=== PATIENT | male | born 1990 | race Caucasian/White ===

== ENCOUNTER → 2018-12-27 | Outpatient (REF) | payer BC ==
[2018-12-27 18:26] LABS: AMYLASE 40 U/L (25-115); LIPASE 144 U/L (73-393)
[2018-12-27 18:35] LABS: H PYLORI QUALITATIVE IgG NEGATIVE (NEGATIVE)
== END ==
LOC: M LAB REF 17:29
PROVIDERS: ATTEND Nurse Practitioner Family
DX: R10.9 Unspecified abdominal pain (principal)

== ENCOUNTER 2019-03-26 09:58 | Day surgery (SDC) | payer BC ==
[~2019-03-26] VITALS: Ht 170.2 cm; Wt 59.4 kg
[~2019-03-26 09:58] MED LIST: HYOS125TA PO; NS 1,000 ML IV ONE; OMEP-221 PO; PROBCAP14 PO
[2019-03-26] MEDS ORDERED: PROPOFOL 200 MG/20 ML VIAL As Ordered ONE (10:25)
[2019-03-26] MEDS ORDERED: LIDOCAINE 2% INJ 100 MG/5 ML SDV (FOR ANES.) As Ordered ONE (10:35)
[2019-03-26] MEDS ORDERED: fentaNYL 100 MCG/2 ML INJECTION (J3010) As Ordered ONE (11:04)
--- NOTE | 2019-03-26 11:54 | ROOR ---
Patient Name: Jacky Paulino Procedure Date: 03/26/2019 11:30 AM Date of : 1990 Age: 29 Room: [facility] Gender: Male Note Status: Finalized Procedure: Upper Endoscopy + Biopsies Indications: Dyspepsia, Heartburn Providers: Ted Toribio MD Referring MD: LIO AVILES NP Requesting Provider: Medicines: Monitored Anesthesia Care Complications: No immediate complications. Procedure: Pre-Anesthesia Assessment: - The heart rate, respiratory rate, oxygen saturations, blood pressure, adequacy of pulmonary ventilation, and response to care were monitored throughout the procedure. The Endoscope was introduced through the mouth, and advanced to the second part of duodenum. The upper GI endoscopy was accomplished without difficulty. The patient tolerated the procedure well. Findings: The Z-line was regular and was found 40 cm from the incisors. No other significant abnormalities were identified in a careful examination of the stomach. Biopsies were taken with a cold forceps in the gastric antrum for Helicobacter pylori testing. The exam of the duodenum was otherwise normal. Impression: - Z-line regular, 40 cm from the incisors. - Biopsies were taken with a cold forceps for Helicobacter pylori testing. - The examination was otherwise normal. Recommendation: - Patient has a contact number available for emergencies. The signs and symptoms of potential delayed complications were discussed with the patient. Return to normal activities tomorrow. Written discharge instructions were provided to the patient. - High fiber diet. - Discharge patient to home. - Follow an antireflux regimen. - Continue present medications. - Await pathology results. - Telephone GI clinic for pathology results in 1 week. - Return to referring physician. - The findings and recommendations were discussed with the patient's family. Ted Toribio MD Ted Toribio MD 03/26/2019 11:54:14 AM Electronically signed by Ted Toribio MD Number of Addenda: 0 Note Initiated On: 03/26/2019 11:30 AM Estimated Blood Loss: Estimated blood loss: none.
--- NOTE | 2019-03-26 12:08 | ROOR ---
Patient Name: Jacky Paulino Procedure Date: 03/26/2019 11:31 AM Date of : 1990 Age: 29 Room: [facility] Gender: Male Note Status: Finalized Procedure: Total Colonoscopy to Cecum + ileoscopy Indications: Lower abdominal pain Providers: Ted Toribio MD Referring MD: LIO AVILES NP Requesting Provider: Medicines: Monitored Anesthesia Care Complications: No immediate complications. Procedure: Pre-Anesthesia Assessment: - The heart rate, respiratory rate, oxygen saturations, blood pressure, adequacy of pulmonary ventilation, and response to care were monitored throughout the procedure. The Colonoscope was introduced through the anus and advanced to the cecum, identified by appendiceal orifice and ileocecal valve. The colonoscopy was performed without difficulty. The patient tolerated the procedure well. The quality of the bowel preparation was excellent. Findings: The perianal and digital rectal examinations were normal. No other significant abnormalities were identified in a careful examination of the remainder of the colon. The exam was otherwise without abnormality on direct and retroflexion views. The terminal ileum appeared normal. The exam was otherwise without abnormality. Impression: - The examination was otherwise normal on direct and retroflexion views. - The examined portion of the ileum was normal. - The examination was otherwise normal. - No specimens collected. - The exam was otherwise normal to the cecum. Recommendation: - Patient has a contact number available for emergencies. The signs and symptoms of potential delayed complications were discussed with the patient. Return to normal activities tomorrow. Written discharge instructions were provided to the patient. - High fiber diet. - Discharge patient to home. - Continue present medications. - Repeat colonoscopy at age 50 for screening purposes. - The findings and recommendations were discussed with the patient's family. Ted Toribio MD Ted Toribio MD 03/26/2019 12:07:37 PM Electronically signed by Ted Toribio MD Number of Addenda: 0 Note Initiated On: 03/26/2019 11:31 AM Estimated Blood Loss: Estimated blood loss: none.
[2019-03-26 12:36] VITALS: BP 108/63
== END 2019-03-26 12:38 | disposition home or self-care (01) ==
LOC: M OPP 09:58
PROVIDERS: ATTEND Internal Medicine Gastroenterology
DX: R10.30 Lower abdominal pain, unspecified (principal); R10.13 Epigastric pain; R12 Heartburn
CPT/HCPCS: 43239; 45378; 88305; J3010

== ENCOUNTER 2019-06-06 19:04 | Emergency (ER) | payer BC, SELFPAY ==
[~2019-06-06] VITALS: Ht 167.6 cm; Wt 61.4 kg
[~2019-06-06 19:04] MED LIST changes: -NS 1,000 ML IV ONE
[2019-06-06] MEDS ORDERED: NS 1,000 ML IV ONE (20:00)
[2019-06-06 20:18] LABS: BASO % 0.4 % (0.0-1.0); EOS # 0.2 10^3/uL (0.0-0.50); EOS % 2.9 % (0.0-3.0); HEMATOCRIT 45.1 % (42.0-52.0); HEMOGLOBIN 15.3 g/dl (13.5-17.5); LYMPH # 2.4 10^3/uL (1.5-6.5); LYMPH % 33.5 % (24.0-44.0); MEAN CORPUSCULAR HEMOGLOBIN 29.2 pg (27.0-33.0); MEAN CORPUSCULAR HGB CONC 33.9 g/dl (32.0-36.5); MEAN CORPUSCULAR VOLUME 86.1 fl (80.0-96.0); MONO # 0.5 10^3/uL (0.0-0.8); MONO % 6.9 % (0.0-5.0); NEUTROPHILS # 4.1 10^3/uL (1.8-7.7); PLATELET COUNT, AUTOMATED 342 10^3/uL (150-450); RED BLOOD COUNT 5.24 10^6/uL (4.30-6.10); WHITE BLOOD COUNT 7.2 10^3/uL (4.0-10.0)
[2019-06-06 20:39] LABS: BLOOD UREA NITROGEN 10 MG/DL (7-18); C REACTIVE PROTEIN QUANTITATIV < 0.30 MG/DL (0.00-0.30); CALCIUM LEVEL 9.8 MG/DL (8.5-10.1); CARBON DIOXIDE LEVEL 30 MEQ/L (21-32); CHLORIDE LEVEL 108 MEQ/L (98-107); CREATININE FOR GFR 1.06 MG/DL (0.70-1.30); GLOMERULAR FILTRATION RATE > 60.0 (>60); GLUCOSE, FASTING 88 MG/DL (70-100); SODIUM LEVEL 141 MEQ/L (136-145)
[2019-06-06 20:40] LABS: ERYTHROCYTE SEDIMENTATION RATE 2 mm/hr (0-15)
[2019-06-06] MEDS ORDERED: METOCLOPRAMIDE 10 MG TAB PO ONE (20:45)
[2019-06-06] MEDS ORDERED: REGL10TA6 PO (21:38)
[2019-06-06 21:43] VITALS: BP 139/83
== END 2019-06-06 21:45 | disposition home or self-care (01) ==
LOC: M ED 19:04
DX: I88.9 Nonspecific lymphadenitis, unspecified (principal); G89.29 Other chronic pain; R10.30 Lower abdominal pain, unspecified; R11.2 Nausea with vomiting, unspecified; J45.909 Unspecified asthma, uncomplicated; K21.9 Gastro-esophageal reflux disease without esophagitis; Z79.899 Other long term (current) drug therapy; Z91.030 Bee allergy status

== ENCOUNTER 2019-06-11 19:15 | Emergency (ER) | payer BC, SELFPAY ==
[~2019-06-11] VITALS: Ht 167.6 cm; Wt 61.4 kg
[~2019-06-11 19:15] MED LIST changes: +REGL10TA6 PO
[2019-06-11] MEDS ORDERED: EXCETAB44 PO (19:22)
[2019-06-11 21:23] LABS: BASO % 0.2 % (0.0-1.0); EOS # 0.1 10^3/uL (0.0-0.50); EOS % 1.5 % (0.0-3.0); HEMATOCRIT 42.6 % (42.0-52.0); HEMOGLOBIN 14.8 g/dl (13.5-17.5); LYMPH # 2.5 10^3/uL (1.5-6.5); LYMPH % 28.2 % (24.0-44.0); MEAN CORPUSCULAR HEMOGLOBIN 29.6 pg (27.0-33.0); MEAN CORPUSCULAR HGB CONC 34.7 g/dl (32.0-36.5); MEAN CORPUSCULAR VOLUME 85.2 fl (80.0-96.0); MONO # 0.5 10^3/uL (0.0-0.8); MONO % 6.1 % (0.0-5.0); NEUTROPHILS # 5.5 10^3/uL (1.8-7.7); NEUTROPHILS % 63.5 % (36.0-66.0); PLATELET COUNT, AUTOMATED 308 10^3/uL (150-450); WHITE BLOOD COUNT 8.7 10^3/uL (4.0-10.0)
[2019-06-11 21:46] LABS: BLOOD UREA NITROGEN 11 MG/DL (7-18); CALCIUM LEVEL 9.6 MG/DL (8.5-10.1); CARBON DIOXIDE LEVEL 32 MEQ/L (21-32); CHLORIDE LEVEL 107 MEQ/L (98-107); CK-MB VALUE MASS < 1.0 NG/ML (<3.6); CPK CREATINE PHOSPHOKINASE 207 U/L (39-308); CREATININE FOR GFR 1.04 MG/DL (0.70-1.30); GLOMERULAR FILTRATION RATE > 60.0 (>60); GLUCOSE, FASTING 91 MG/DL (70-100); MB/CK RELATIVE INDEX 0.48 (< OR =4); POTASSIUM SERUM 3.9 MEQ/L (3.5-5.1); SODIUM LEVEL 142 MEQ/L (136-145); TROPONIN I < 0.02 NG/ML (< 0.10)
[2019-06-11] MEDS ORDERED: KETOROLAC 30 MG/ML VIAL (J1885) IV ONE (23:00)
[2019-06-11] MEDS ORDERED: KETO10TAB PO (23:32)
[2019-06-11 23:41] VITALS: BP 130/85
[2019-06-11] MEDS ORDERED: ACETAMINOPHEN 500 MG TAB PO ONE (23:45)
--- NOTE | 2019-06-12 08:15 | REP ---
Right rib series: Five views including PA chest. History: Chest pain. Findings: PA chest radiograph is normal. There is no evidence of infiltrate or free subdiaphragmatic air. Heart is not enlarged. Pulmonary vasculature is not increased. No significant bony abnormality is seen. Four views of the right ribcage show no visible rib fracture or bony destructive lesion. Impression: Negative right rib series. Electronically Signed by Lars Adhikari MD 06/12/2019 08:07 A
--- NOTE | 2019-06-13 05:51 | ECGEPIP ---
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
== END 2019-06-11 23:42 | disposition home or self-care (01) ==
LOC: M ED 19:15
DX: M94.0 Chondrocostal junction syndrome [Tietze] (principal); K21.9 Gastro-esophageal reflux disease without esophagitis; J45.909 Unspecified asthma, uncomplicated; G89.29 Other chronic pain; R11.2 Nausea with vomiting, unspecified; Z87.891 Personal history of nicotine dependence; Z91.030 Bee allergy status; Z79.899 Other long term (current) drug therapy
CPT/HCPCS: 71101; 80048; 82550; 82553; 84484; 85025; 93005; 96374; 99284; J1885

== ENCOUNTER → 2019-07-28 | Outpatient (CLI) | payer BC ==
[~2019-07-28] MED LIST changes: +EXCETAB44 PO; +KETO10TAB PO
--- NOTE | 2019-07-28 11:21 | REP ---
Gastric emptying nuclear scintigraphy: History: Nausea vomiting. Bloating. Technique: 1.06 mCi of technetium-99m sulfur colloid was ingested in two scrambled eggs and 6 ounces of water and sequential anterior and posterior images are acquired for an 89-minute imaging observation period. Regions of interest are drawn around the stomach to plot gastric emptying. Scintigraphic findings: Expected T1/2 is 90 minutes. 15 % emptying is observed in this patient during the 89-minute imaging observation period, for a calculated T1/2 in this patient of 281 minutes. Impression: Delayed gastric emptying. Electronically Signed by Lars Adhikari MD 07/28/2019 11:13 A
== END ==
LOC: M RAD 07:41
PROVIDERS: ATTEND Internal Medicine Gastroenterology
DX: K30 Functional dyspepsia (principal)
CPT/HCPCS: 78264; A9541

== ENCOUNTER 2020-04-29 20:30 | Emergency (ER) | payer BC ==
[~2020-04-29] VITALS: Ht 172.7 cm; Wt 65.9 kg
[2020-04-29] MEDS ORDERED: EPIN0.3I11 IM (20:41)
[2020-04-29] MEDS ORDERED: TOPI25TA10 PO (20:41)
[2020-04-29] MEDS ORDERED: GI COCKTAIL 50ML BTL(HYOSCYAMINE/MAALOX/LIDOCAINE VISCOUS)(1:3:1) PO ONE (21:15)
[2020-04-29] MEDS ORDERED: ONDANSETRON 4MG/2ML VIAL IV ONE (21:15)
[2020-04-29 22:00] LABS: BASO % 0.4 % (0.0-1.0); EOS # 0.3 10^3/uL (0.0-0.5); EOS % 2.6 % (0.0-3.0); HEMATOCRIT 43.8 % (42.0-52.0); HEMOGLOBIN 15.1 g/dl (13.5-17.5); LYMPH # 3.6 10^3/uL (1.5-5.0); LYMPH % 38.3 % (24.0-44.0); MEAN CORPUSCULAR HEMOGLOBIN 28.9 pg (27.0-33.0); MEAN CORPUSCULAR HGB CONC 34.5 g/dl (32.0-36.5); MEAN CORPUSCULAR VOLUME 83.9 fl (80.0-96.0); MONO # 0.7 10^3/uL (0.0-0.8); MONO % 7.1 % (0.0-5.0); NEUTROPHILS # 4.9 10^3/uL (1.5-8.5); NEUTROPHILS % 51.4 % (36.0-66.0); PLATELET COUNT, AUTOMATED 331 10^3/uL (150-450); RED BLOOD COUNT 5.22 10^6/uL (4.30-6.10); WHITE BLOOD COUNT 9.5 10^3/uL (4.0-10.0)
[2020-04-29 22:14] LABS: INR 0.96; PROTHROMBIN TIME 12.5 SECONDS (11.8-14.0)
[2020-04-29 22:21] LABS: ALBUMIN 4.5 GM/DL (3.2-5.2); ALT/SGPT 49 U/L (12-78); BILIRUBIN,DIRECT < 0.1 MG/DL (0.0-0.2); BILIRUBIN,TOTAL 0.4 MG/DL (0.2-1.0); CK-MB VALUE MASS < 1.0 NG/ML (<3.6); CPK CREATINE PHOSPHOKINASE 239 U/L (39-308); LIPASE 136 U/L (73-393); MB/CK RELATIVE INDEX 0.42 (< OR =4); TOTAL PROTEIN 7.7 GM/DL (6.4-8.2); TROPONIN I < 0.02 NG/ML (< 0.10)
[2020-04-30 00:15] VITALS: BP 128/79
--- NOTE | 2020-04-30 00:56 | ECGEPIP ---
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
--- NOTE | 2020-04-30 08:10 | REP ---
Clinical: Acute chest pain . Comparison: 06/11/2019 . Findings: The mediastinum and cardiac silhouette are stable and within normal limits for portable technique. The lung roth are clear without acute consolidation, effusion, or pneumothorax. Skeletal structures are intact. Impression: No acute cardiopulmonary process appreciated. Electronically Signed by Scotty Han MD 04/30/2020 08:01 A
== END 2020-04-30 00:35 | disposition home or self-care (01) ==
LOC: M ED 20:30
DX: R07.89 Other chest pain (principal); R11.2 Nausea with vomiting, unspecified; K21.9 Gastro-esophageal reflux disease without esophagitis; Z79.899 Other long term (current) drug therapy; Z91.030 Bee allergy status
CPT/HCPCS: 71045; 80047; 80076; 82550; 82553; 83690; 84484; 85025; 85610; 93005; 93041; 94760; 96374; 99285; J2405

== ENCOUNTER 2021-02-02 07:21 | Emergency (ER) | payer BC ==
[~2021-02-02] VITALS: Ht 167.6 cm; Wt 68.2 kg
[~2021-02-02 07:21] MED LIST changes: +EPIN0.3I11 IM; +TOPI25TA10 PO
[2021-02-02] MEDS ORDERED: MIRA3350 PO (07:28)
[2021-02-02] MEDS ORDERED: META0.52 PO (07:28)
[2021-02-02] MEDS ORDERED: MORPHINE 2 MG/ML 1ML VIAL (J2270) IV PRN ×2 (08:15)
[2021-02-02 08:42] LABS: BASO % 0.1 % (0.0-1.0); EOS # 0.1 10^3/uL (0.0-0.5); EOS % 1.5 % (0.0-3.0); HEMATOCRIT 44.8 % (42.0-52.0); HEMOGLOBIN 15.2 g/dl (13.5-17.5); LYMPH # 1.7 10^3/uL (1.5-5.0); LYMPH % 21.9 % (24.0-44.0); MEAN CORPUSCULAR HEMOGLOBIN 28.7 pg (27.0-33.0); MEAN CORPUSCULAR HGB CONC 33.9 g/dl (32.0-36.5); MEAN CORPUSCULAR VOLUME 84.7 fl (80.0-96.0); MONO # 0.5 10^3/uL (0.0-0.8); MONO % 6.9 % (2.0-8.0); NEUTROPHILS # 5.4 10^3/uL (1.5-8.5); NEUTROPHILS % 69.3 % (36.0-66.0); PLATELET COUNT, AUTOMATED 314 10^3/uL (150-450); RED BLOOD COUNT 5.29 10^6/uL (4.30-6.10); WHITE BLOOD COUNT 7.8 10^3/uL (4.0-10.0)
--- NOTE | 2021-02-02 08:43 | REP ---
INDICATION: CHEST PAIN COMPARISON: 04/29/2020 TECHNIQUE: Portable AP view of the chest FINDINGS: The mediastinum and cardiac silhouette are stable and within normal limits for portable technique. The lung roth are clear without acute consolidation, effusion, or pneumothorax. Skeletal structures are intact. IMPRESSION: No acute cardiopulmonary process appreciated. <Electronically signed by Scotty Han > 02/02/21 0827
[2021-02-02 09:13] LABS: ALBUMIN 4.5 GM/DL (3.2-5.2); BILIRUBIN,DIRECT 0.1 MG/DL (0.0-0.2); BILIRUBIN,TOTAL 0.3 MG/DL (0.2-1.0); FREE T4 0.96 NG/DL (0.76-1.46); THYROID STIMULATING HORMONE 0.645 uIU/ML (0.358-3.740); TOTAL PROTEIN 7.3 GM/DL (6.4-8.2)
[2021-02-02] MEDS ORDERED: ISOVUE-370 76% 100ML VIAL As Ordered ONE (09:36)
--- NOTE | 2021-02-02 10:50 | REP ---
INDICATION: chest pain COMPARISON: None. TECHNIQUE: Axial contrast enhanced images from the thoracic inlet to the upper abdomen using pulmonary embolus technique with multiplanar re-formations. 75 ml Isovue 370 intravenous contrast material administered without complication. This CT examination was performed using the following dose reduction techniques: Automated exposure control, adjustment of mA and/or kv according to the patient's size, and use of iterative reconstruction technique. FINDINGS: Satisfactory enhancement of the pulmonary vasculature is achieved and no filling defects are identified to suggest pulmonary embolus. Further evaluation of the mediastinum demonstrates normal thoracic aorta, heart and pericardium. The bilateral lung roth are well aerated and clear without consolidation pleural effusion or pneumothorax. Tracheobronchial tree is patent. No nodule or mass lesion is identified. No adenopathy noted. Surrounding musculoskeletal structures intact IMPRESSION: No evidence for pulmonary embolus. No acute mediastinal or pleural parenchymal process. <Electronically signed by Scotty Han > 02/02/21 1047
[2021-02-02 12:52] VITALS: BP 147/89
--- NOTE | 2021-02-02 13:21 | ECGEPIP ---
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
--- NOTE | 2021-02-02 13:28 | ECGEPIP ---
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
== END 2021-02-02 13:10 | disposition home or self-care (01) ==
LOC: M ED 07:21
DX: R07.9 Chest pain, unspecified (principal); R06.02 Shortness of breath; K21.9 Gastro-esophageal reflux disease without esophagitis; G43.909 Migraine, unspecified, not intractable, without status migrainosus; Z91.030 Bee allergy status; Z79.899 Other long term (current) drug therapy

== ENCOUNTER → 2023-06-14 | Outpatient (CLI) | payer BC ==
[~2023-06-14] MED LIST changes: +META0.52 PO; +MIRA3350 PO; -OMEP-221 PO; +OMEP40CA5 PO
== END ==
LOC: M RAD 15:43
PROVIDERS: ATTEND Chiropractor
DX: J93.9 Pneumothorax, unspecified (principal)

== ENCOUNTER → 2025-06-09 | Outpatient (CLI) | payer BC ==
[~2025-06-09] MED LIST changes: +ACET-1599 PO; -EXCETAB44 PO; +TOPI-256 PO; -TOPI25TA10 PO
== END ==
LOC: M WUC 08:31
PROVIDERS: ATTEND Physician Assistant Medical
DX: M79.641 Pain in right hand (principal)